=== PATIENT | female | born 1975 | race Caucasian/White ===

== ENCOUNTER 2024-02-12 21:37 | Inpatient (IN) | payer OTHER ==
[~2024-02-12] VITALS: Ht 152.4 cm; Wt 72.3 kg
[2024-02-12] MEDS ORDERED: NS 1,000 ML IV ONE (23:00)
[2024-02-12] MEDS ORDERED: Mag/Al Hydrox/Simeth Susp 30 ML CUP PO ONE (23:00)
[2024-02-13] VITALS (11 sets, daily range): BP systolic 108–148; BP diastolic 50–88; PULSE 98–116; TEMP 98.1–98.8
[2024-02-13 00:10] LABS: HEMOGLOBIN 11.3 g/dl (12.5-16.0); MEAN CELL VOLUME 87 fl (80.0-100.0); MEAN CORPUSCULAR HEMOGLOBIN 27 pg (27-31); MEAN CORPUSCULAR HGB CONC 31 g/dl (33.0-37.0); MEAN PLATELET VOLUME 10.5 fl (7.4-10.4); PLATELET COUNT 408 K/mm3 (130-400); RED BLOOD COUNT 4.23 M/mm3 (4.10-5.30)
[2024-02-13 00:16] LABS: HEMATOCRIT 36.9 % (37.0-47.0)
[2024-02-13 00:25] LABS: ALANINE AMINOTRANSFERASE 7 U/L (0-55); ALBUMIN 2.3 g/dL (3.5-5.0); ALKALINE PHOSPHATASE 176 U/L (40-150); ANION GAP 17 mmol/L (7-16); AST,SGOT 12 U/L (5-34); BLOOD UREA NITROGEN 40 mg/dL (7-19); CREATININE, serum 1.89 mg/dL (0.57-1.11); LIPASE 20 U/L (8-78); MAGNESIUM 1.7 mg/dL (1.6-2.6); POTASSIUM 5.1 mEq/L (3.5-4.5); TOTAL PROTEIN 7.8 g/dl (6.2-8.1)
[2024-02-13 00:41] LABS: CHLORIDE 79 mEq/L (98-107); GLUCOSE 891 mg/dL (70-99); SODIUM 116 mEq/L (136-145); TROPONIN-I < 0.010 ng/mL (0.00-0.033)
[2024-02-13] MEDS ORDERED: Insulin Human Regular/NS 100 ML IV ONE (01:00)
[2024-02-13] MEDS ORDERED: Insulin Lispro (HumaLOG) IV ONE (01:00)
[2024-02-13 01:09] LABS: BAND 7 % (0-10); EOSINOPHIL 1 % (0-4); LYMPHOCYTE 12 % (20.0-51.0); NEUTROPHILS 74 % (42.0-75.2); PLATELET ESTIMATE NORMAL (NORMAL)
[2024-02-13] MEDS ORDERED: Acetaminophen 325 MG TAB PO PRN (01:15)
[2024-02-13] MEDS ORDERED: D5 1/2 NS 1,000 ML IV SCH (01:15)
[2024-02-13] MEDS ORDERED: Polyethylene Glycol 3350 17 GM PDS PO PRN (01:15)
[2024-02-13] MEDS ORDERED: Insulin Regular Human (NovoLIN R/HumuLIN R) IV ONE (01:15)
[2024-02-13] MEDS ORDERED: NS 1,000 ML IV SCH (01:15)
[2024-02-13] MEDS ORDERED: Insulin Human Regular/NS 100 ML IV SCH (01:15)
[2024-02-13] MEDS ORDERED: Docusate Sodium 100 MG CAP PO PRN (01:15)
[2024-02-13 01:45] LABS: URINE APPEARANCE TURBID (CLEAR/HAZY); URINE BLOOD 3+ (NEGATIVE); URINE COLOR YELLOW (YELLOW); URINE GLUCOSE 2+ (NEGATIVE); URINE KETONE TRACE (NEGATIVE); URINE NITRATE NEGATIVE (NEGATIVE); URINE PROTEIN(semi-quant) 1+ (NEGATIVE)
[2024-02-13 01:59] LABS: COLLECTION METHOD CLEAN CATCH
[2024-02-13 02:00] LABS: MUCOUS PRESENT (NOT PRESENT); SQUAMOUS EPITHELIAL 0-2 /hpf (0-10); URINE BACTERIA RARE /hpf (NONE SEEN); URINE WBC >50 /hpf (0-2)
[2024-02-13] MEDS ORDERED: Linezolid 600 MG TAB PO SCH (02:05)
[2024-02-13] MEDS ORDERED: cefTRIAXone 1 G in Water For Injection,Sterile 10 ML IV SCH (02:30)
[2024-02-13] MEDS ORDERED: hydrALAZINE 20 MG/ML 1 ML VIAL IV PRN (02:30)
[2024-02-13 03:20] LABS: CALCIUM 8.5 mg/dL (8.4-10.2); CREATININE, serum 1.84 mg/dL (0.57-1.11); POTASSIUM 3.9 mEq/L (3.5-4.5)
[2024-02-13 06:10] LABS: BASO # 0.1 K/mm3 (0.0-0.2); BASO % 0.6 % (0.0-2.0); EOS # 0.1 K/mm3 (0.0-0.7); EOS % 1.1 % (0.0-4.0); GRAN # 9.2 K/mm3 (1.4-6.5); GRAN % 76.3 % (42.2-75.2); HEMOGLOBIN 10.2 g/dl (12.5-16.0); LYMPH # 1.4 K/mm3 (1.2-3.4); LYMPH % 11.7 % (20.0-51.0); MEAN CORPUSCULAR HEMOGLOBIN 27 pg (27-31); MEAN CORPUSCULAR HGB CONC 33 g/dl (33.0-37.0); MEAN PLATELET VOLUME 10.2 fl (7.4-10.4); MONO # 1.2 K/mm3 (0.1-0.6); MONO % 9.8 % (1.7-9.3); PLATELET COUNT 353 K/mm3 (130-400); RED BLOOD COUNT 3.81 M/mm3 (4.10-5.30); REDCELL DISTRIBUTION WIDTH-CV 12.5 % (11.5-14.5)
[2024-02-13 06:17] LABS: HEMATOCRIT 30.9 % (37.0-47.0); MEAN CELL VOLUME 81 fl (80.0-100.0)
[2024-02-13 06:27] LABS: ALBUMIN 2.1 g/dL (3.5-5.0); CALCIUM 9.5 mg/dL (8.4-10.2); CREATININE, serum 1.58 mg/dL (0.57-1.11); POTASSIUM 3.7 mEq/L (3.5-4.5); TOTAL PROTEIN 7.1 g/dl (6.2-8.1)
--- NOTE | 2024-02-13 07:30 | NUR ---
Report received from ALVAREZ Meier. Reviewed overnight events. Pt has NS infusing at 150ml/hr and insulin at 6 units/hr. Pt is resting in bed with call light within reach able to make needs known. Campbell in place, with cloudy kerry urine. Pt has boil to groin and red yeast-like around groin to right buttocks. Pt c/o 3/10 pain to groin area. Denies any nausea. Q1HR blood sugar checks in place. Denies any other needs at this time. Call light within reach. Will continue with POC.
[2024-02-13 07:59] LABS: BILIRUBIN,TOTAL 3.1 mg/dL (0.2-1.2)
[2024-02-13] MEDS ORDERED: Heparin 5,000 UNITS/ML 1 ML VIAL SQ SCH (08:00)
[2024-02-13] MEDS ORDERED: Fluconazole 100 MG TAB PO SCH (09:00)
[2024-02-13] MEDS ORDERED: Insulin Glargine-ygfn (Lantus) SQ SCH (10:01)
[2024-02-13 10:06] LABS: CALCIUM 8.6 mg/dL (8.4-10.2); CREATININE, serum 1.3 mg/dL (0.57-1.11); POTASSIUM 3.6 mEq/L (3.5-4.5)
--- NOTE | 2024-02-13 10:14 | NUR ---
side door worker met with patient to discuss discharge planning. Patient lives alone in [place] with her 6 cats. Patient reports her best contact is iglesia Ortega, P# [phone]. No PCP as patient has been struggling to find someone to accept her insurance or that would have new patient avaiability. Pharmacy is [facility] in [place] the one located on [address]. Insurance is [employer], no issues with affording medications. No DPOA-HC but may be interested in completing one. SW provided blank copy of this form and expressed to contact the rn social work to assist with completing if interested, patient understood. Patient stated she has a sister that lives in [place] but wanted to contact her to see if she would be okay with being the primary agent. DME includes a glucometer and cane which she indicated she rarely uses. Patient reports to normally be independent with ADLS and transportation to appointments. Patient would like to return home at time of discharge. Patient reports the only concern she had would be the cost of insulin if she needed this upon discharge. Discharge plan: Home
--- NOTE | 2024-02-13 11:51 | NUR ---
Data: Casting Plug Assembler attempted to provide spiritual care during Casting Plug Assembler rounds. Patient had visitors with whom she appeared to be enjoying conversation. Assessment: None at this time. Plan of Care: Chaplains will remain available as needed/requested while Patient is admitted to this hospital.
[2024-02-13] MEDS ORDERED: Insulin Lispro (HumaLOG) SQ SCH (12:00)
--- NOTE | 2024-02-13 12:32 | NUR ---
Incsion and Drainage preformed by Dr. Neal. Consent signed by pt after proceudre explained by Dr. Donis. This RN remained at bedside during procedure. Pt tolerated well. Cultures sent to lab per orders.
--- NOTE | 2024-02-13 14:26 | NUR ---
Report called to ALVAREZ Waldrop. Reviewed patient history and events done during the day. All questions answered. Pt transferred to room 359 via wheelchair. ALVAREZ Waldrop notified that pt was in room, call light within reach and bed alarm activated.
[2024-02-13] MEDS ORDERED: Nystatin Powder **** subs to Miconazole Powder TOP SCH (14:37)
--- NOTE | 2024-02-13 14:49 | NUR ---
Pt arrived to medical unit from ICU by wheelchair. Report received from ALVAREZ Brown. Assessment completed. VSS. Pt is A&Ox4. Lung sounds clear to auscultation. BS active x4. Edema to BLE noted with no pitting. Excoriation to pannus/groin area. Incision to Lt groin covered with gauze with minimal drainage. Pt denies pain rating 0/10. Oriented pt to room, call light, and bathroom. Fall precautions in place. Pt has no request at this time. Call light within reach.
--- NOTE | 2024-02-13 15:45 | NUR ---
Received call that patient is wanting to complete a DPOA form. SW met with patient to complete form. She named Shannon Segovia as DPOA. Original and copies provided to patient, copy placed on chart. Discharge plan: Home
--- NOTE | 2024-02-13 19:30 | NUR ---
DR CHOWDARY NOTIFIED OF PATIENT HEAMTURIA AND HEPARIN INJECTION ORDERED. MD CHAPA WITH THIS D/T PATIENT CURRENT DX AND PRESENTATION. PATIENTS ID SITE TO THE LEFT GROIN THAT WAS PERFORMED TODAY WITH EXCESSIVE DRAINAGE. PER NIGHT THIS RN TO CALL AND INFORMED DR ARAGON.
--- NOTE | 2024-02-13 19:39 | NUR ---
DR WATTS NOTIFIED OF DRAINAGE TO PATIENT ID SITE TODAY. PER MD THIS IS EXPECTED AND CONTINUE WITH CURRENT ORDERS. NIGHT RN NOTIFIED.
[2024-02-14] VITALS (12 sets, daily range): BP systolic 120–155; BP diastolic 82–89; PULSE 96–117; TEMP 98.2–98.8
[2024-02-14 07:09] LABS: POTASSIUM 4.1 mEq/L (3.5-4.5)
--- NOTE | 2024-02-14 07:15 | NUR ---
awake resting in bed, bedside shift report received from ALVAREZ Shipley
--- NOTE | 2024-02-14 08:00 | NUR ---
watching TV, full assessment completed, see interventions for further info, denies needs at this time, sitting up to eat breakfast now
--- NOTE | 2024-02-14 11:00 | NUR ---
Dr Guevara was in to see patient
[2024-02-14] MEDS ORDERED: Dextrose 50% Water 25 GM/50 ML SYRINGE IV PRN (11:30)
[2024-02-14] MEDS ORDERED: Dextrose (Glucose) 15 GM (4 x 3.75 GM) Chewable TABLET PACK PO PRN (11:30)
[2024-02-14] MEDS ORDERED: Glucagon 1 MG VIAL IM PRN (11:30)
--- NOTE | 2024-02-14 12:22 | NUR ---
had lunch and tolerated well, bunch catheter discontinued, tolerated well
--- NOTE | 2024-02-14 15:13 | NUR ---
resting in bed looking at TV, visiting with a friend
--- NOTE | 2024-02-14 16:37 | NUR ---
was up and had a shower and tolerated well, has not voided and is continuing to drink water,
--- NOTE | 2024-02-14 17:15 | NUR ---
resting in bed, denies needs
--- NOTE | 2024-02-14 18:15 | NUR ---
still unable to void, PSYCHOLOGY INSTRUCTOR scanned bladder and it revealed approx 750ml urine, spoke with Dr Berry and will wait approx two hours to see if she can void
--- NOTE | 2024-02-14 18:48 | NUR ---
bedside shift report given to ALVAREZ Shipley
[2024-02-14] MEDS ORDERED: Insulin Glargine-ygfn (Lantus) SQ SCH (21:00)
[2024-02-15] VITALS (13 sets, daily range): BP systolic 149–176; BP diastolic 90–98; PULSE 95–108; TEMP 98–99.3
[2024-02-15] MEDS ORDERED: oxyCODONE 5 MG TAB PO PRN (08:45)
--- NOTE | 2024-02-15 16:20 | NUR ---
02/15/[id number]-DIABETES EDUCATION REQUESTED BY ALVAREZ COLBERT FOR THIS PATIENT. THIS DIETITIAN SPOKE WITH PATIENT RE: NEW DM DIAGNOSIS AND BRIEF EDUCATION ON THE FOLLOWING: MONITORING BG AT HOME AND DIFFERENT OPTIONS (FINGERSTICK OR CGM WITH PCP PRESCRIPTION), GOALS FOR BG (FASTIN-130MG/DL, PRANDIAL: <180 MG/DL), TYPES OF INSULIN SHE IS CURRENTLY ON AND THEIR DIFFERENCES IN ONSET/DURATION (LISPRO VS. LANTUS), AND BASIC NUTRITION GUIDELINES (HEALTHY PLATE'. PATIENT IS INTERESTED IN COMING TO SEE ME FOR OUTPATIENT DIABETES EDUCATION ONCE SHE RETURNS FROM [place], HOWEVER, SHE WILL NEED A REFERRAL FROM HER PCP. I RECOMMENDED ONCE SHE ESTABLISHES A PCP HERE, TO REQUEST A REFERRAL TO DIABETES EDUCATION WELL ENDOCRINOLOGY DEPENDING ON HOW THINGS PROGRESS WITH THE MASSES SEEN ON HER CT SCAN (PANCREAS, LIVER). GAVE PATIENT A PACKET OF INFORMATION WELL MY BUSINESS CARD. BIGG MARIANO,MS,RD,CSSD,LD
--- NOTE | 2024-02-15 16:41 | NUR ---
02/15/[id number]-[id number] RD SAW THIS PATIENT FOR DIABETES EDUCATION. HOWEVER DURING OUR VISIT SHE REQUESTED A SIDE SALAD WITH MEALS WELL INCREASED PROTEIN PORTIONS SHE HAS BEEN VERY HUNGRY HER BLOOD SUGARS ARE COMING DOWN. SHE ALSO NOTES PRIOR TO ADMISSION SHE HAD NOT EATEN HARDLY ANYTHING FOR APPROXIMATELY [address] REQUESTED EXTRA PROTEIN WITH ALL 3 MEALS DAILY AND A SIDE SALAD WITH LUNCH/DINNER MOVING FORWARD. KML,MS,RD,CSSD,LD
--- NOTE | 2024-02-15 16:48 | NUR ---
QUINTIN SUCCESSFULLY COMPLETED ALL STEPS OF CHCKING HER BLOOD SUGAR INDEPENDENTLY WITH RN SUPERVISION. PATIENT VOICES BEING MORE COMFORTABLE WITH MANAGING HER DM AT HOME.
--- NOTE | 2024-02-15 21:45 | NUR ---
DISCUSSED WITH PATIENT HER HIGH BLOOD PRESSURE. I INFORMED HER THERE IS PRN HYDRALAZINE. SHE HAS REFUSED THIS AND STATES SHE WANTS TO WAIT AND SEE WHAT HER MIDNIGHT BLOOD PRESSURE IS. SHE BELIEVES IT IS ELEVATED BECAUSE SHE HAS NOT SLEPT VERY WELL THE LAST FEW DAYS.
--- NOTE | 2024-02-15 21:50 | NUR ---
PT IS RESTING IN THE BED TALKING ON THE PHONE. SHE IS ALERT AND ORIENTED. SHE HAS A DUMAS CATHETER IN PLACE. SHE IS ON ROOM AIR. NO PAIN COMPLAINTS AT THIS TIME. IV SITES ARE LOCKED. THE DAY NURSE AND MYSELF LOOKED AT THE DRAINING ABCESS ON HER LEFT GROIN AND CHANGED THE GAUZE. PT IS INDEPENDENT. CALL MONSIVAIS AT THE BEDSIDE.
[2024-02-16] VITALS (7 sets, daily range): BP systolic 135–158; BP diastolic 76–90; PULSE 89–103; TEMP 98.1–98.2
[2024-02-16 07:05] LABS: BASO # 0.1 K/mm3 (0.0-0.2); BASO % 0.6 % (0.0-2.0); EOS # 0.5 K/mm3 (0.0-0.7); EOS % 4.6 % (0.0-4.0); GRAN # 7.1 K/mm3 (1.4-6.5); HEMOGLOBIN 10.4 g/dl (12.5-16.0); LYMPH # 1.8 K/mm3 (1.2-3.4); LYMPH % 17.3 % (20.0-51.0); MEAN CELL VOLUME 84 fl (80.0-100.0); MEAN CORPUSCULAR HEMOGLOBIN 27 pg (27-31); MEAN CORPUSCULAR HGB CONC 32 g/dl (33.0-37.0); MONO % 9.5 % (1.7-9.3); PLATELET COUNT 326 K/mm3 (130-400); RED BLOOD COUNT 3.87 M/mm3 (4.10-5.30); REDCELL DISTRIBUTION WIDTH-CV 12.9 % (11.5-14.5)
[2024-02-16 07:11] LABS: HEMATOCRIT 32.6 % (37.0-47.0)
--- NOTE | 2024-02-16 07:15 | NUR ---
PATINET AWAKE AND ALERT, SITTING UP IN BED. CALL LIGHT WITHIN REACH. FALL PRECAUTIONS IN PLACE. PATIENT DENIES ANY NEEDS OR COMPLAINTS AT THIS TIME.
[2024-02-16 07:31] LABS: CALCIUM 8.1 mg/dL (8.4-10.2); CREATININE, serum 0.85 mg/dL (0.57-1.11); POTASSIUM 3.9 mEq/L (3.5-4.5)
--- NOTE | 2024-02-16 07:49 | NUR ---
PATIENT SUCCESSFULLY CHECKED HER BLOOD SUGAR WITHOUT ANY ISSUES.
[2024-02-16] MEDS ORDERED: DIFLUCAN 100MG100 MG PO (10:44)
[2024-02-16] MEDS ORDERED: OMNICEF 300MG300 MG PO (10:45)
[2024-02-16] MEDS ORDERED: GLUCAGON EMERGEN1 M1 SQ (10:50)
[2024-02-16] MEDS ORDERED: INSULIN GL100 UNIT/2 SQ (10:50)
[2024-02-16] MEDS ORDERED: CONTROL SOLUTI1 EAC1 MC (10:50)
[2024-02-16] MEDS ORDERED: INSULIN PEN NE1 EAC1 MC (10:50)
--- NOTE | 2024-02-16 11:10 | NUR ---
LINDSEY FINISHED BREAKFAST AT 1030. THIS RN WAS CALLED AND INFORMED PATIENT REPORTS FEELING THOUGH HER BLOOD SUGAR IS LOW.. BLOOD SUGAR CHECKED AND IS CURRENTLY 225. THIS RN WILL RECHECK BLOOD SUAGR AT 1230 SINCE PATIENT JUST COMPLETED BREAKFAST RECENTLY.
--- NOTE | 2024-02-16 12:10 | NUR ---
PATIENT GIVEN CATHETER CARE TEACHING AND WAS CHANGED TO A LEG BAG. PATIENT ABLE TO VERBALIZE CORRECT STEPS TO CHANGE HER LEG BAG AND DRAIN IT. PATIENT CONTINUES TO DEMOSTRATE CORRECT SKILLS WITH CHECKING HER BLOOD SUGAR AND ADMINISTERING INSULIN INDEPENDENTLY. PATIENT DENIES ANY CURRENT NEEDS OR COMPLAINTS. DISCHARGE INSTRUCTIONS AND EDUCAITON GIVEN. PATIENT VERBALIZED UNDERSTANDING OF ALL FOLLOW UP APTS NEEDED.
--- NOTE | 2024-02-16 14:38 | NUR ---
PATIENT LEFT IN STABLE CONDITION WITH HER FRIEND.
== END 2024-02-16 14:38 | disposition home or self-care (01) | DRG 637 ==
LOC: COL.ER 21:37 → ICU 02-13 03:31 → MEDICAL 02-13 03:31
PROVIDERS: Internal Medicine; Physician Assistant; ADMIT Internal Medicine
DX: E11.00 Type 2 diabetes mellitus with hyperosmolarity without nonketotic hyperglycemic-hyperosmolar coma (NKHHC) (principal); K83.1 Obstruction of bile duct; E87.1 Hypo-osmolality and hyponatremia; N17.9 Acute kidney failure, unspecified; N39.0 Urinary tract infection, site not specified; N13.30 Unspecified hydronephrosis; L02.214 Cutaneous abscess of groin; E11.9 Type 2 diabetes mellitus without complications; Z79.4 Long term (current) use of insulin; E87.5 Hyperkalemia; N32.0 Bladder-neck obstruction
CPT/HCPCS: J0696; J0737; J1644; J1815; J2765; J7030; Q3014